=== PATIENT | female | born 1990 | race Caucasian/White ===

== ENCOUNTER 2016-06-07 00:19 | Emergency (ER) | payer BC ==
[~2016-06-07] VITALS: Ht 167.6 cm; Wt 74.8 kg
--- NOTE | 2016-06-07 00:19 | NUR ---
PT ESTEBAN BEASLEY, PREBOOK. TAKEN TO OF
[2016-06-07 00:20] VITALS: BP 161/114
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
--- NOTE | 2016-06-07 00:35 | NUR ---
Dr. Jorgensen evaluating patient
[2016-06-07 01:24] VITALS: BP 135/85
--- NOTE | 2016-06-07 01:24 | NUR ---
PATIENT [facility] POLICE DEPT. PATIENT EXAMINED BY DR. JOHNSON. PATIENT MEDICALLY CLEARED AND RELEASED IN CUSTODY IN STABLE CONDITION. ORIGINAL PRE-BOOK FORM GIVEN TO OFFICER AMY.
== END 2016-06-07 01:24 ==
LOC: MED 00:19
DX: M25.511 Pain in right shoulder (principal); J45.909 Unspecified asthma, uncomplicated; Z88.6 Allergy status to analgesic agent; Z88.0 Allergy status to penicillin; V89.2XXA Person injured in unspecified motor-vehicle accident, traffic, initial encounter; Y93.89 Activity, other specified; Y92.89 Other specified places as the place of occurrence of the external cause; Y99.8 Other external cause status
CPT/HCPCS: 73030; 99284; Q0092